=== PATIENT | male | born 1985 | race Two or more races ===

== ENCOUNTER 2018-12-11 20:16 | Emergency (ER) | payer MEDICAID ==
[~2018-12-11] VITALS: Ht 172.7 cm; Wt 58.4 kg
[~2018-12-11 20:16] MED LIST: HYDR1TAB PO; ONDA4TAB6 PO; ONDA8TAB9 PO
[2018-12-11 20:36] VITALS: BP 148/84
[2018-12-11] MEDS ORDERED: CLIN300C70 PO (22:54)
[2018-12-11] MEDS ORDERED: NYST1000 PO (22:54)
[2018-12-11] MEDS ORDERED: CHLO1LIQ2 PO (22:54)
[2018-12-11] MEDS ORDERED: IBUP-1984 PO (22:55)
== END 2018-12-11 23:11 | disposition home or self-care (01) ==
LOC: ER 20:16
DX: K05.10 Chronic gingivitis, plaque induced (principal); Z88.1 Allergy status to other antibiotic agents; Z79.2 Long term (current) use of antibiotics; Z79.899 Other long term (current) drug therapy
CPT/HCPCS: 99283

== ENCOUNTER 2019-05-09 01:53 | Emergency (ER) | payer MEDICAID ==
[~2019-05-09] VITALS: Ht 172.7 cm; Wt 59.0 kg
[~2019-05-09 01:53] MED LIST changes: +CHLO1LIQ2 PO
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
[2019-05-09] MEDS ORDERED: ABAC1TAB14 PO ×2 (03:18→04:12)
[2019-05-09 03:19] LABS: URINE AMPHETAMINE SCREEN NEGATIVE (Neg); URINE BARBITUATE SCREEN NEGATIVE (Neg); URINE BENZODIAZEPINES SCREEN NEGATIVE (Neg); URINE CANNABINOID SCREEN POSITIVE (Neg); URINE COCAINE SCREEN NEGATIVE (Neg); URINE METHADONE SCREEN NEGATIVE (Neg); URINE OPIATE SCREEN NEGATIVE (Neg); URINE PHENCYCLIDINE SCREEN NEGATIVE (Neg)
[2019-05-09] MEDS ORDERED: ALBU8.5H8 IH (03:20)
[2019-05-09] MEDS ORDERED: PROM25TA14 PO ×2 (03:21→04:12)
[2019-05-09] MEDS ORDERED: HYDR-3686 PO (03:27)
[2019-05-09] MEDS ORDERED: PARO-62 PO (03:29)
--- NOTE | 2019-05-09 03:35 | NUR ---
Assumed care of patient, pt. ambulated over from main ER without difficulty accompainied by RN. Appears calm and cooperative, rr even and unlabored.
[2019-05-09 03:46] LABS: ALANINE AMINOTRANSFERASE 34 U/L (12-78); ALBUMIN 4.9 G/DL (3.4-5.0); ALBUMIN/GLOBULIN RATIO 1.6 (1.1-1.5); ALKALINE PHOSPHATASE 74 IU/L (46-116); ANION GAP 8 (8-16); ASPARTATE AMINO TRANSFERASE 25 U/L (10-37); BILIRUBIN,TOTAL 0.3 MG/DL (0.1-1.0); BLOOD UREA NITROGEN 9 MG/DL (7-18); BUN/CREATININE RATIO 9.5 (5.4-32.0); CALCIUM 8.9 MG/DL (8.5-10.1); CHLORIDE 110 MMOL/L (99-107); CREATININE 0.95 MG/DL (0.60-1.10); ETHANOL 0.144 GM/DL (0.0-0.010); GLUCOSE 97 MG/DL (70-104); POTASSIUM 3.7 MMOL/L (3.5-5.1); SODIUM 146 MMOL/L (135-145); TOTAL CARBON DIOXIDE 27.9 MMOL/L (24-32); eGFR > 90 ML/MIN
[2019-05-09] MEDS ORDERED: ALB0.5UD IH (04:12)
[2019-05-09] MEDS ORDERED: acetaminophen 325mg tablet PO ONE (04:20)
--- NOTE | 2019-05-09 04:26 | NUR ---
Pt. laying in bed at this time, denies any s/s of alcohol withdrawal (nausea, tremors, or sweating). However, pt. does report a h/a, obtained an order for Tylenol, will continue to monitor. Pt. also provided with a snack an voices content.
[2019-05-09 04:27] LABS: BASOPHILS % (AUTO) 0.3 % (0-1); EOSINOPHILS # (AUTO) 0.1 X10'3 (0-0.9); HEMATOCRIT 49.5 % (42.0-52.0); LYMPHOCYTES % (AUTO) 31.9 % (21-51); MEAN CORPUSCULAR HGB CONC 34.4 g/dL (33.0-36.5); MEAN CORPUSCULAR VOLUME 90.1 FL (78-98); MEAN PLATELET VOLUME 8.2 FL (7.4-10.4); MONOCYTES # (AUTO) 0.6 X10'3 (0-0.9); MONOCYTES % (AUTO) 9.5 % (2-12); NEUTROPHILS # (AUTO) 3.6 X10'3 (1.8-7.7); NEUTROPHILS % (AUTO) 57.3 % (42-75); PLATELET COUNT 185 X10'3 (140-440); RED CELL DISTRIBUTION WIDTH 14.3 % (11.5-14.5); WHITE BLOOD COUNT 6.2 X10'3 (4.5-11.0)
--- NOTE | 2019-05-09 04:30 | NUR ---
FAMILY PHONE NUMBERS: ( and two brothers) in front of pt's chart
[2019-05-09] MEDS ORDERED: proMETHazine 25mg tablet PO PRN (04:35)
[2019-05-09] MEDS ORDERED: albuterol 2.5 MG/3 ML nebule NEB PRN (04:40)
[2019-05-09] MEDS ORDERED: LAMIVUDI PO SCH ×2 (04:40→08:00)
[2019-05-09] MEDS ORDERED: ABACAVIR PO SCH ×2 (04:40→08:00)
[2019-05-09] MEDS ORDERED: DOLUTEGRAVIR PO SCH ×2 (04:40→08:00)
[2019-05-09 05:29] LABS: CLARITY,URINE CLEAR (Clear); COLOR,URINE YELLOW (Yellow); GLUCOSE, URINE NEGATIVE (Neg); KETONES,URINE NEGATIVE (Neg); LEUKOCYTE ESTERASE ,URINE NEGATIVE (Neg); NITRITES, URINE NEGATIVE (Neg); OCCULT BLOOD,URINE NEGATIVE (Neg); PROTEIN,URINE NEGATIVE (Neg); UA COLLECTION TYPE CLN CATCH MIDSTREAM; UROBILINOGEN,URINE 0.2 E.U/dL (0.2-1.0)
--- NOTE | 2019-05-09 05:47 | NUR ---
Pt. sleeping at this time, laying on his left side, rr even and unlabored, will continue to monitor.
--- NOTE | 2019-05-09 11:30 | NUR ---
Patient's bringing in his home meds for HIV this afternoon.
--- NOTE | 2019-05-09 13:45 | NUR ---
Pt 1-2 pk day smoker; asking to smoke. Nicotine patch declined for now by until he is seen by [facility]
[2019-05-09 17:34] VITALS: BP 143/93
[2019-05-10] MEDS ORDERED: LAMIVUDI PO SCH (08:00)
[2019-05-10] MEDS ORDERED: ABACAVIR PO SCH (08:00)
[2019-05-10] MEDS ORDERED: DOLUTEGRAVIR PO SCH (08:00)
== END 2019-05-09 18:35 | disposition home or self-care (01) ==
LOC: ER 01:53
DX: F32.9 Major depressive disorder, single episode, unspecified (principal); F10.129 Alcohol abuse with intoxication, unspecified; F12.10 Cannabis abuse, uncomplicated; F17.210 Nicotine dependence, cigarettes, uncomplicated; Z88.2 Allergy status to sulfonamides; Z88.8 Allergy status to other drugs, medicaments and biological substances; Z79.899 Other long term (current) drug therapy; Y90.0 Blood alcohol level of less than 20 mg/100 ml
CPT/HCPCS: 36415; 80053; 80305; 80320; 81003; 84443; 85025; 99284

== ENCOUNTER 2021-11-04 20:39 | Emergency (ER) | payer MEDICAID, OTHER ==
[~2021-11-04] VITALS: Ht 172.7 cm; Wt 65.9 kg
[~2021-11-04 20:39] MED LIST changes: +ABAC1TAB14 PO; +ALB0.5UD IH; -CHLO1LIQ2 PO; -HYDR1TAB PO; -ONDA4TAB6 PO; -ONDA8TAB9 PO; +PROM25TA14 PO
[2021-11-04 20:44] VITALS: BP 130/91
== END 2021-11-04 23:15 | disposition home or self-care (01) ==
LOC: ER 20:40
DX: M25.462 Effusion, left knee (principal); M25.562 Pain in left knee; F17.200 Nicotine dependence, unspecified, uncomplicated; Z72.89 Other problems related to lifestyle; Z88.2 Allergy status to sulfonamides; Z88.8 Allergy status to other drugs, medicaments and biological substances; Z79.899 Other long term (current) drug therapy; X50.1XXA Overexertion from prolonged static or awkward postures, initial encounter; Y93.72 Activity, wrestling; Y92.89 Other specified places as the place of occurrence of the external cause; Y99.8 Other external cause status
CPT/HCPCS: 29505; 73564; 99283

== ENCOUNTER 2023-03-19 14:59 | Emergency (ER) | payer OTHER ==
[~2023-03-19] VITALS: Ht 175.3 cm; Wt 63.6 kg
[2023-03-19 15:19] VITALS: TEMP 98.6
--- NOTE | 2023-03-19 15:22 | NUR ---
DR ETIENNE NOTIFIED OF PTS HR 157. NO NEW ORDERS, MD AWARE
[2023-03-19] MEDS ORDERED: LORazepam 1 MG tablet PO STA (15:39)
--- NOTE | 2023-03-19 16:07 | NUR ---
SPOKE WITH PT'S REGARDING THE PROCESS FOR MH IN THE ER. PT GAVE HIS PERMISSION TO GIVE HIS , TSERING, ANY AND ALL INFORMATION REGARDING HIS STAY IN THE ER/MH. TSERING'S CONTACT #: [phone]
[2023-03-19] MEDS ORDERED: haloperidol lactate 5mg/ml inj IM ONE (16:20)
[2023-03-19] MEDS ORDERED: LORazepam 2 mg/ml vial IM ONE (16:20)
--- NOTE | 2023-03-19 17:42 | NUR ---
Pt brought to EROF from main ER at 1605, escorted by D and [facility] security. Pt yelling and beligerant and demanding. Pt unable to take direction or cooperate and continued to yell and make threats. Pt was given Haldol 5mg and Ativan 2mg IM per MD order. Pt continued to yell intermittently and was able to calm a bit and made phone call to , which became yelling. Pt fell asleep at approx. 1710 and remains asleep.
[2023-03-19 18:22] LABS: BASOPHILS # (AUTO) 0.1 X10'3 (0-0.2); BASOPHILS % (AUTO) 1.1 % (0-1); EOSINOPHILS % (AUTO) 0.2 % (0-6); HEMATOCRIT 44.1 % (42.0-52.0); HEMOGLOBIN 15.2 g/dl (14.0-17.9); LYMPHOCYTES # (AUTO) 1.1 X10'3 (1.1-4.8); LYMPHOCYTES % (AUTO) 18.8 % (21-51); MEAN CORPUSCULAR HEMOGLOBIN 30.4 PG (27.0-31.0); MEAN CORPUSCULAR HGB CONC 34.4 g/dL (33.0-36.5); MEAN CORPUSCULAR VOLUME 88.3 FL (78-98); MEAN PLATELET VOLUME 8.2 FL (7.4-10.4); MONOCYTES # (AUTO) 0.3 X10'3 (0-0.9); MONOCYTES % (AUTO) 4.7 % (2-12); NEUTROPHILS # (AUTO) 4.2 X10'3 (1.8-7.7); NEUTROPHILS % (AUTO) 75.2 % (42-75); PLATELET COUNT 155 X10'3 (140-440); RED BLOOD COUNT 4.99 X10'6 (4.70-6.10); RED CELL DISTRIBUTION WIDTH 14.7 % (11.5-14.5); WHITE BLOOD COUNT 5.6 X10'3 (4.5-11.0)
[2023-03-19 18:37] LABS: ALANINE AMINOTRANSFERASE 23 U/L (12-78); ALBUMIN 4.2 G/DL (3.4-5.0); ALBUMIN/GLOBULIN RATIO 1.4 (1.1-1.5); ALKALINE PHOSPHATASE 61 IU/L (46-116); ANION GAP 11 (8-16); ASPARTATE AMINO TRANSFERASE 25 U/L (10-37); BILIRUBIN,TOTAL 0.3 MG/DL (0.1-1.0); BLOOD UREA NITROGEN 10 MG/DL (7-18); BUN/CREATININE RATIO 9.9 (10.0-20.0); CALCIUM 8.9 MG/DL (8.5-10.1); CHLORIDE 112 MMOL/L (99-107); CREATININE 1.01 MG/DL (0.60-1.10); GLUCOSE 97 MG/DL (70-104); POTASSIUM 3.7 MMOL/L (3.5-5.1); SODIUM 149 MMOL/L (135-145); TOTAL PROTEIN 7.2 G/DL (6.4-8.2); eCRCL 92 ML/MIN; eGFR 84 ML/MIN
[2023-03-19 18:47] LABS: ETHANOL 180 MG/DL (<10); THYROID STIMULATING HORMONE 0.78 ulU/ml (0.34-4.50)
[2023-03-19] MEDS ORDERED: NO HOME MEDS (19:51)
--- NOTE | 2023-03-19 19:51 | NUR ---
The patient has been asleep on his bed since change of shift. He awakened briefly when lab connie his labs. He has not been able to give a urine sample for a tox screeen but his BA was 180
--- NOTE | 2023-03-19 20:16 | NUR ---
The patient was awakened for recheck on HR and BP. He was reminded his super tray was at the bedside and that a urine sample was needed.
--- NOTE | 2023-03-19 20:49 | NUR ---
The patient appears to be sleeping.
--- NOTE | 2023-03-19 21:14 | NUR ---
The patient awake briefly. He refused his dinner tray. He stated that he wanted to be out of the hospital. He was reminded that a urine sample was needed.
--- NOTE | 2023-03-19 21:26 | NUR ---
pts called named martha [phone]. Stated pt has been struggling with transgender stuff. Pt is wanting to become female. Pt also struggles with ptsd.
--- NOTE | 2023-03-19 23:10 | NUR ---
The patient appears to be sleeping
--- NOTE | 2023-03-20 00:56 | NUR ---
The patient appears to be sleeping
--- NOTE | 2023-03-20 03:07 | NUR ---
The patient appears to be sleeping
--- NOTE | 2023-03-20 03:37 | NUR ---
The patient up to use the bathroom and gave a urine sample. He was given fresh water and juice.
[2023-03-20 03:44] LABS: BILIRUBIN,URINE NEGATIVE (Neg); CLARITY,URINE SLIGHTLY CLOUDY (Clear); COLOR,URINE YELLOW (Yellow); GLUCOSE, URINE NEGATIVE (Neg); KETONES,URINE NEGATIVE (Neg); LEUKOCYTE ESTERASE ,URINE NEGATIVE (Neg); NITRITES, URINE NEGATIVE (Neg); OCCULT BLOOD,URINE NEGATIVE (Neg); PROTEIN,URINE NEGATIVE (Neg); UROBILINOGEN,URINE 0.2 E.U/dL (0.2-1.0)
[2023-03-20 03:48] LABS: UA COLLECTION TYPE VOIDED
[2023-03-20 03:53] LABS: BACTERIA,URINE FEW /HPF (Neg); MUCUS STRANDS MANY /LPF (Neg); RBC,URINE 0-2 /HPF (0-2); SQUAMOUS EPITHELIAL CELL,UR FEW /LPF (FEW); TRANSITIONAL EPI CELLS,URINE FEW /HPF; WBC,URINE 0-4 /HPF (0-4)
[2023-03-20 04:06] LABS: URINE AMPHETAMINE SCREEN NEGATIVE (Neg); URINE BARBITUATE SCREEN NEGATIVE (Neg); URINE BENZODIAZEPINES SCREEN NEGATIVE (Neg); URINE CANNABINOID SCREEN POSITIVE (Neg); URINE COCAINE SCREEN NEGATIVE (Neg); URINE METHADONE SCREEN NEGATIVE (Neg); URINE OPIATE SCREEN NEGATIVE (Neg); URINE PHENCYCLIDINE SCREEN NEGATIVE (Neg)
--- NOTE | 2023-03-20 04:50 | NUR ---
PACKET SENT TO [facility]
--- NOTE | 2023-03-20 05:02 | NUR ---
The patient appears to be sleeping
--- NOTE | 2023-03-20 07:27 | NUR ---
RECEIVED REPORT. PT SLEEPING, EVEN RESPS, IN NAD.
--- NOTE | 2023-03-20 11:28 | NUR ---
Met with patient in regards to alcohol use and to see if patient is interested in resources for treatment options. Patient is interested in starting Naltrexone. I spoke with Dr Martinez and he will prescribe. I gave patient a card for [facility] and my card to call me with any questions.
[2023-03-20] MEDS ORDERED: naltrexone 50mg tablet PO SCH (11:30)
[2023-03-20] MEDS ORDERED: NALT50TA PO (11:40)
--- NOTE | 2023-03-20 11:50 | NUR ---
pt received his valuables from the ER registration safe prior from discharging, pt other belongings given back to put back on.
--- NOTE | 2023-03-20 11:55 | NUR ---
ENTERED SCRIPT FOR NALTEXONE FOR PT TO START WHEN DC'D. FIRST DOSE WAS NOT TO BE GIVEN HERE. PT A/O X4 IN NAD AND WAS ESCORTED TO EXIT BY SECURITY.
[2023-03-20 11:58] VITALS: BP 115/70; PULSE 88; RESP 16; O2SAT 99
== END 2023-03-20 12:01 | disposition home or self-care (01) ==
LOC: ER 15:00
DX: R45.851 Suicidal ideations (principal); Z20.822 Contact with and (suspected) exposure to COVID-19; F10.129 Alcohol abuse with intoxication, unspecified
CPT/HCPCS: 36415; 80053; 80305; 80320; 81001; 84443; 85025; 87811; 96372; 99285; J1630; J2060

== ENCOUNTER 2024-07-13 10:05 | Emergency (ER) | payer MEDICAID ==
[~2024-07-13] VITALS: Ht 172.7 cm; Wt 61.6 kg
[~2024-07-13 10:05] MED LIST changes: -ABAC1TAB14 PO; -ALB0.5UD IH; +NALT50TA5 PO; +NO HOME MEDS; -PROM25TA14 PO
[2024-07-13 10:33] LABS: BASOPHILS % (AUTO) 0.2 % (0-1); EOSINOPHILS # (AUTO) 0.3 X10'3 (0-0.9); EOSINOPHILS % (AUTO) 4.1 % (0-6); HEMATOCRIT 43.4 % (42.0-52.0); HEMOGLOBIN 14.8 g/dl (14.0-17.9); LYMPHOCYTES # (AUTO) 1.8 X10'3 (1.1-4.8); LYMPHOCYTES % (AUTO) 24.5 % (21-51); MEAN CORPUSCULAR HEMOGLOBIN 29.9 PG (27.0-31.0); MEAN CORPUSCULAR VOLUME 88.1 FL (78-98); MEAN PLATELET VOLUME 8.1 FL (7.4-10.4); MONOCYTES # (AUTO) 0.9 X10'3 (0-0.9); MONOCYTES % (AUTO) 11.8 % (2-12); NEUTROPHILS # (AUTO) 4.4 X10'3 (1.8-7.7); NEUTROPHILS % (AUTO) 59.4 % (42-75); PLATELET COUNT 195 X10'3 (140-440); RED BLOOD COUNT 4.93 X10'6 (4.70-6.10); RED CELL DISTRIBUTION WIDTH 13.7 % (11.5-14.5); WHITE BLOOD COUNT 7.5 X10'3 (4.5-11.0)
[2024-07-13 11:03] LABS: ALANINE AMINOTRANSFERASE 30 U/L (12-78); ALBUMIN/GLOBULIN RATIO 1.3 (1.1-1.5); ALKALINE PHOSPHATASE 69 IU/L (46-116); ANION GAP 7 (8-16); ASPARTATE AMINO TRANSFERASE 17 U/L (10-37); BILIRUBIN,TOTAL 0.3 MG/DL (0.1-1.0); BLOOD UREA NITROGEN 13 MG/DL (7-18); CHLORIDE 104 MMOL/L (99-107); CREATININE 0.65 MG/DL (0.60-1.10); GLUCOSE 98 MG/DL (70-104); POTASSIUM 3.8 MMOL/L (3.5-5.1); PRO BRAIN NATRIURETIC PEPTIDE 44 PG/ML (0-125); SODIUM 140 MMOL/L (135-145); eCRCL 137 ML/MIN; eGFR > 90 ML/MIN
[2024-07-13 12:48] VITALS: BP 118/77; PULSE 61; RESP 18; TEMP 97.7; O2SAT 99
== END 2024-07-13 12:51 | disposition home or self-care (01) ==
LOC: ER 10:06
DX: R55 Syncope and collapse (principal); E86.0 Dehydration; Z88.1 Allergy status to other antibiotic agents; Z88.2 Allergy status to sulfonamides
CPT/HCPCS: 36415; 71045; 80053; 83880; 84484; 85025; 93005; 99285